=== PATIENT | female | born 1970 | race Caucasian/White ===

== ENCOUNTER 2017-02-01 15:17 | Emergency (ER) | payer OTHER ==
--- NOTE | 2017-02-01 16:28 | RAD ---
FOOT LEFT 3 VIEWS HISTORY: Injury to the dorsal aspect of the foot with pain and swelling. COMPARISONS: None. FINDINGS: 3 views of the left foot were performed demonstrating bony osteopenia. The visualized osseous structures appear to remain intact with no definitive fracture seen. The alignment is appropriate. The joint spaces are well-maintained. No focal soft tissue abnormalities are seen other is prominent asymmetric midfoot soft tissue swelling present. IMPRESSION: 1. Midfoot soft tissue swelling. No definitive fracture is seen.
== END 2017-02-01 16:44 | disposition home or self-care (01) ==
LOC: ED 15:17
DX: S90.32XA Contusion of left foot, initial encounter (principal); W20.8XXA Other cause of strike by thrown, projected or falling object, initial encounter; Y92.9 Unspecified place or not applicable